=== PATIENT | male | born 1985 ===

== ENCOUNTER 2021-05-03 19:49 | Observation (INO) | payer BC ==
[2021-05-03 21:34] VITALS: BMI 39.1
[2021-05-03] MEDS ORDERED: Ondansetron PF 4 MG/2 ML Vial IVP PRN (21:38)
[2021-05-03] MEDS ORDERED: Morphine 4 MG/ML VIAL SLOW IVP PRN (21:38)
[2021-05-03] MEDS: Piperacillin/Tazobactam 3.375 GM in Sodium Chloride 0.9% 100 ML IVPB SCH (22:13)
[2021-05-03] MEDS: Dextrose 5 %-0.45 % NaCl 1,000 ML IV SCH (22:14)
[2021-05-04] MEDS: Piperacillin/Tazobactam 3.375 GM in Sodium Chloride 0.9% 100 ML IVPB SCH ×2 (05:57→14:55)
[2021-05-04] MEDS: Dextrose 5 %-0.45 % NaCl 1,000 ML IV SCH (10:43)
[2021-05-04] MEDS ORDERED: Bupivacaine 0.25% HCL 30 ML VIAL ONE (10:50)
[2021-05-04] MEDS ORDERED: Lidocaine 1% w/Epinephrine 1:100K 20 ML VIAL ONE (10:50)
[2021-05-04] MEDS ORDERED: Lidocaine 1% PF 5 ML VIAL ONE (11:28)
[2021-05-04] MEDS ORDERED: Ondansetron PF 4 MG/2 ML Vial ONE (11:28)
[2021-05-04] MEDS ORDERED: Glycopyrrolate 0.2 MG/ML 5 ML SYRINGE ONE (11:28)
[2021-05-04] MEDS ORDERED: Rocuronium Bromide 10 MG/ML (10ML VIAL) ONE (11:28)
[2021-05-04] MEDS ORDERED: PROPOFOL 200 MG/20 ML VIAL ONE (11:28)
[2021-05-04] MEDS ORDERED: Dexamethasone 20 MG/5 ML VIAL ONE (11:28)
[2021-05-04] MEDS ORDERED: Ketorolac Tromethamine 30 MG/ML VIAL IVP SCH ×2 (11:30→18:00)
[2021-05-04] MEDS ORDERED: Fentanyl 100 MCG/2 ML VIAL ONE (12:40)
[2021-05-04] MEDS ORDERED: HYDROcodone/Acetaminophen 5/325 mg Tablet PO PRN (14:09)
[2021-05-04 15:07] VITALS: BP 133/81; TEMP 98.2
== END 2021-05-04 17:10 | disposition home or self-care (01) ==
LOC: SURG B 19:49
PROVIDERS: ADMIT Surgery; ATTEND Surgery
PROC: 0DTJ4ZZ Resection of Appendix, Percutaneous Endoscopic Approach (ICD-10-PCS; principal; 2021-05-04)
DX: K35.30 Acute appendicitis with localized peritonitis, without perforation or gangrene (principal); K38.8 Other specified diseases of appendix; Z79.899 Other long term (current) drug therapy
CPT/HCPCS: 88304; 96365; 96366; 96375; 96376; G0378; J1100; J1885; J2270; J2405; J2543; J2704; J3010; J3490; J7042; S0020